=== PATIENT | male | born 2000 | race Caucasian/White ===

== ENCOUNTER 2025-02-24 17:24 | Emergency (ER) | payer OTHER, SELFPAY ==
[2025-02-24 17:25] VITALS: BP 132/84; PULSE 98; RESP 16; TEMP 36.6; O2SAT 98; BMI 25.7
[2025-02-24 18:08] LABS: Hematocrit 42.1 % (40-54); Hemoglobin 14.1 g/dL (13.0-16.5); Immature Granulocytes Count 0.030 X10^3/uL (0.0-0.0); Mean Corp Hgb Conc 33.5 g/dL (32-36); Mean Corpuscular Volume 88.1 fL (80-94); Mean Platelet Vol. 8.9 fl (6.2-12.0); NRBC Flagged by Analyzer 0 % (0-5); Platelet Count 326 K/mm3 (150-450); RBC Distribution Width CV 12.2 % (11.6-14.6); RBC Distribution Width SD 39.6 fl (35.1-43.9); Red Blood Count 4.78 M/mm3 (4.6-6.2); White Blood Count 7.3 K/mm3 (4.4-11.0)
--- NOTE | 2025-02-24 18:12 | EDS_ITS ---
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 The patient recently relocated from [place] to [place] moving in with his girlfriend. He notes a longstanding depression. He states he previously attempted suicide when he was about 13 years old. Today he called crisis and was threatening to harm himself by driving to the police department and shooting himself. He has been under the care at the [place] in [place] and most recently getting ketamine infusion. He states that his last treatment was about a week week and a half ago. He has not established locally since relocating here about 2 months ago. He does have access to firearms inside his residence. He states that nothing seems to be making his depression better. He notes his sleep has been better with the ketamine. He states he is not under the influence of any drugs or alcohol at this time. [facility] Medical History (Updated 02/24/25 @ 18:[address] Brian Guy DO) Depression Medical History no medical history Allergy/AdvReac Type Severity Reaction Status Date / Time doxycycline AdvReac Mild Hives Verified 02/24/25 17:27 Family History no significant family his Surgical History no surgical history Social History Smoking Status: Current every day smoker tobacco type: cigarettes ROS ROS ED Constitutional Constitutional ED: Denies chills, fever(s) or weight loss Eyes Eyes: Denies change in vision or diplopia ENT ENT ED: Denies ear pain, rhinorrhea or sore throat Cardiovascular Cardiovascular: Denies chest pain, orthopnea, palpitations or racing heartbeat Respiratory/Chest Respiratory/Chest: Denies cough, dyspnea or orthopnea Gastrointestinal Gastrointestinal: Denies abdominal pain, diarrhea, nausea or vomiting Genitourinary Genitourinary ED: Denies dysuria, hematuria or urinary frequency Musculoskeletal Musculoskeletal: Denies arthralgias or myalgias Integumentary Denies abscess or rash Neurologic Neurologic: Denies headache(s) or weakness Psychiatric Psychiatric: Reports depression, suicidal ideation and suicidal thoughts; Denies anxiety Endocrine Endocrinology: Denies polydipsia, polyphagia or polyuria Allergic/Immunologic Allergic/Immunologic ED: Denies mouth swelling, tongue swelling or urticaria EXAM Physical Exam Const Vital Signs: 02/24/25 17:25 02/24/25 18:38 Temperature 98 F Temperature Source Oral Pulse Rate 98 81 Respiratory Rate 16 16 Blood Pressure 132/84 H 122/81 H Blood Pressure Mean 100 94 Pulse Ox 98 98 Oxygen Delivery Method Room Air Room Air Positive well nourished and well developed General Appearance ED: well developed and NAD HEENT Reports normocephalic, head/scalp atraumatic and moist mucous membranes Eyes PERRL and EOMs intact bilaterally Neck no lymphadenopathy, supple and no JVD Resp normal respiratory effort and clear to auscultation bilaterally Cardio regular rate, regular rhythm and no murmurs GI normal to inspection, nondistended, normoactive bowel sounds and non-tender Palpation: soft Back/Spine no CVA tenderness and normal ROM Extremity normal to inspection General Extremety ED: Negative for edema General Extremity: Negative for edema Neuro oriented x3 and CN's II-XII intact bilaterally Sensorium / Orientation: alert Motor Exam: strength 5/5 throughout Psych Appearance: grossly normal Attitude: calm and withdrawn Activity / Motor Behavior: fidgetting Speech: minimal, slow and soft Mood & Affect: depressed and sad Thought Process: normal thought process Thought Content: suicidality and No homicidality Attention / Concentration: attention grossly intact Memory / Cognition: memory grossly intact Insight: fair Judgement: fair Skin no rashes or lesions noted and no wounds MDM MDM MDM Narrative Medical decision making narrative: Differential diagnosis includes depression suicidality homicidality schizophrenia personality disorder toxic prodrome Psychiatric screening labs will be obtained. I spoke with case management who will assist us in getting the patient placed. I have filled out a pink slip. Alcohol level is negative. Cannabinoids presumptive positive. CMP within normal limits. EKG was requested by receiving psychiatric facility. This was reviewed and shows a normal sinus rhythm at a rate of 89 with a QT interval that is not prolonged History & Record Review Discussion w/independent historian: Patient Lab Data Attestation: I reviewed the patient's lab results. Labs: Laboratory Results - last 24 hr 02/24/25 02/24/25 17:46 18:10 WBC 7.3 RBC 4.78 Hgb 14.1 Hct 42.1 MCV 88.1 MCH 29.5 MCHC 33.5 RDW Std Deviation 39.6 RDW Coeff of Beck 12.2 Plt Count 326 MPV 8.9 Immature Gran % (Auto) 0.400 Neut % (Auto) 62.0 Lymph % (Auto) 21.5 [place] % (Auto) 8.6 Eos % (Auto) 7.0 H Baso % (Auto) 0.5 Absolute Neuts (auto) 4.5 Absolute Lymphs (auto) 1.57 Nucleated RBC % 0 Sodium 140 Potassium 3.5 Chloride 103 Carbon Dioxide 24.6 Anion Gap 13 BUN 13 Creatinine 0.78 Estim Creat Clear Calc 129.51 Est GFR (MDRD) Non-Af 126 BUN/Creatinine Ratio 16.4 Glucose 94 Calcium 10.0 Total Bilirubin 0.35 AST 19 ALT 17 Alkaline Phosphatase 56 Total Protein 8.0 Albumin 4.7 Globulin 3.3 Albumin/Globulin Ratio 1.4 Urine Opiates Screen NEGATIVE U Buprenorphine Qual NEGATIVE Ur Oxycodone Screen NEGATIVE Urine Methadone Screen NEGATIVE Urine Fentanyl Screen NEGATIVE Ur Barbiturates Screen NEGATIVE Ur Phencyclidine Scrn NEGATIVE Ur Amphetamines Screen NEGATIVE U Benzodiazepines Scrn NEGATIVE Urine Cocaine Screen NEGATIVE U Cannabinoids Screen PRESUMPTIVE POSITIVE Ethyl Alcohol < 10.1 EKG Initial EKG: Attestation: I personally reviewed and interpreted this EKG as follows: Comments: Normal sinus rhythm ventricular rate of 89 bpm. 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
[2025-02-24 18:38] VITALS: BP 122/81; PULSE 81; RESP 16; O2SAT 98
[2025-02-24 18:47] LABS: Barbiturate Urine NEGATIVE (< 200 ng/mL); Benzodiazepine Urine NEGATIVE (< 200 ng/mL); PCP Urine NEGATIVE (< 25 ng/mL); THC Urine PRESUMPTIVE POSITIVE (< 50 ng/mL)
[2025-02-24 18:49] LABS: AST(SGOT) 19 U/L (<=37); Alanine Aminotransfer ALT/SGPT 17 U/L (<=46); Albumin, Serum 4.7 g/dL (3.5-5.0); Alcohol, Blood (Medical)-Serum < 10.1 mg/dL (<=10.0); Alkaline Phosphatase 56 U/L (40-129); Anion Gap 13 (5-15); BUN 13 mg/dL (4-19); BUN/Creat Ratio 16.4 RATIO (10-20); Calcium,Total 10.0 mg/dL (7.6-11.0); Carbon Dioxide 24.6 mmol/L (21.0-32.0); Chloride 103 mmol/L (98-108); Estimated Creatinine Clearance 129.51 ml/min (50-250); Globulin 3.3 g/dL (2.2-4.2); Glucose 94 mg/dL (70-99); Potassium 3.5 mmol/L (3.3-5.1)
--- NOTE | 2025-02-24 19:27 | CM.ED ---
Social Work Psychiatric Assessment Reason for consult: Mental Health? Informant(s): ?Patient, medical record Chief Complaint: ??Patient came to the ED due to suicide ideation with plan and intent.? Patient states he has tried everything else, he decided he needed to try inpatient treatment.?? Patient states that in the last month, his depression has increased to the worst it has ever been.? Patient states he has always had depression, but recently he feels hopeless, has no ambition, never wants to do anything, feels guilty all the time, finds no clay in any aspect of life. Patient states that he has increased anxiety as well, states he constantly feels that he is not good enough, not living up to standards, worries about everything all the time.? Patient admits to one suicide attempt when he was 13, patient drank bleach.? Patient states that he currently has a plan to use a gun to commit suicide, that he had plans to drive to the police station, lay down in their yard and shoot himself. ?Patient does have access to fire arms. Patient denies auditory or visual hallucinations, denies paranoia or delusions. Patient reports his sleep has improved since starting ketamine injections, states his appetite is poor.? 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 Mental Health Treatment/History: ?Patient reports being diagnosed with depression and mood adjustment disorder.? Patient has been prescribed Ability, reports to being medication compliant. Has recently been receiving Ketamine injections, states he has received 4-5 does with no effect other than it is helping with his sleep.? Triggers/Stressors to mental health: ?Chronic pain, stress with move Coping Skills: ?patient reports the only coping skill he has now is to sleep History of Abuse (physical/sexual/verbal/emotional): denies Substance Abuse Current/Historical: ?patient uses marijuana, denies illicit drug use or alcohol use. Risk to Self/Others: ? Suicidal (thought/plan/intent/attempt): ?suicidal ideations with plan and intent ? Access to Lethal Means: ?yes ? Homicidal (thought/plan/intent/attempt): ?none ? History of Violence (self/others/objects): ?none Mental Status Exam: ??? Orientation: ?patient is alert and oriented x 3 ??? Memory: ?intact Appearance/General Behavior: ?Patient is slumped, directable, calm Mood/Affect: ?depressed, blunted, constricted Communication Pattern: ?responds to questions, difficult at times to get to expand on answers Thought Process: ?appropriate General Intellectual Functioning: ?average Judgment: ?fair Insight: fair Plan: Due to patient suicidal ideation with intent and plan, and severe depression that has not responded to treatment, inpatient psychiatric hospitalization is recommended. Physician consulted and in agreement with same. Sharonda Sal, PROJECT ADMINISTRATOR, SENIOR CLINICAL RESEARCH ASSOCIATE
--- NOTE | 2025-02-24 19:57 | CM.ED ---
Social Work SW contacted [facility] to see if there were beds available, referral faxed per [place] request. CANDACE received call from Rudolph at [facility] bed control (ph: [phone] ext: [phone]). stating they did not have any beds available tonight, that patient is eligible to seek treatment at other hospitals. Sharonda Sal, INTENSIVE CARE MEDICINE SPECIALIST, COVERING MACHINE OPERATOR HELPER
--- NOTE | 2025-02-24 21:09 | CM.ED ---
Social Work SW was referred and accepted at [facility]. Patient will be going to [facility], accepting is Dr. Wood. [facility] [phone]. [facility] faxed. Patient and girlfriend notified of accepting facility. Rudolph at [facility] control also called per his request to update on accepting hospital. Sharonda Sal, DEPUTY SHERIFF CUSTODY, SALVAGE WINDER
--- NOTE | 2025-02-24 21:11 | EKG12_ITS ---
Test Reason : MHC Blood Pressure : */* mmHG Vent. Rate : 89 BPM Atrial Rate : 89 BPM P-R Int : 146 ms QRS Dur : 92 ms QT Int : 350 ms P-R-T Axes : 62 48 58 degrees QTcB Int : 425 ms Normal sinus rhythm Normal ECG Confirmed by LUZMA ROBBINS, DANIEL ([id number]), manager editorial CANDI GARCIA ([id number]) on 02/25/2025 12:23:00 PM Referred By: Confirmed By: DANIEL SEGAL MD
--- NOTE | 2025-02-24 21:55 | ED.RN ---
Report called to [facility].
[2025-02-24] MEDS: Nicotine (PBKC) 14 MG Patch TD (22:19)
[2025-02-24 22:28] VITALS: BP 114/57; PULSE 110; RESP 16; TEMP 36.6; O2SAT 98
[2025-02-24 22:29] VITALS: BP 114/57; PULSE 110; RESP 16; TEMP 36.6; O2SAT 98
== END 2025-02-25 00:23 ==
PROVIDERS: Emergency Provider Emergency Medicine; Visit Provider Emergency Medicine
DX: F32.9 Major depressive disorder, single episode, unspecified (principal); R45.851 Suicidal ideations; F17.210 Nicotine dependence, cigarettes, uncomplicated
CPT/HCPCS: 80053; 80307; 82077; 85025; 93005; 99284